=== PATIENT | female | born 1940 | race Caucasian/White ===

== ENCOUNTER 2023-10-20 11:18 | Emergency (ER) | payer OTHER, SELFPAY ==
[2023-10-20 11:21] VITALS: BP 148/94
[2023-10-20 11:38] VITALS: BMI 32.3
[2023-10-20 11:45] VITALS: BP 152/81
--- NOTE | 2023-10-20 11:54 | ED.GENMED ---
History of Present Illness
General
Chief Complaint: Abnormal Lab Value
Source: patient and family (Daughter at bedside)
Exam Limitations: none
Time Seen by Provider: 10/20/23 11:47
Nursing documentation reviewed up to this point in time: agreed with
Travel History
Have you had any contact with someone who has COVID-19?: No
Do you have any symptoms of coronavirus? Fever > 100 degrees, chills, cough, shortness of breath, sore throat, loss of taste or smell, muscle aches, or headache?: No
History of Present Illness
History of Present Illness:
83-year-old female history of asthma/COPD, PE, HTN, HLD, remote history of skin cancer on her leg saw her PCP on 09/18 and diagnosed with bronchitis/asthma was treated and improved. 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
work done, was called today informing her her D dimer was elevated. She admits to feeling 'a little' short of breath at this time, denies leg pain. Denies chest pain, fever, abdominal pain.
Past History
Past History
ED Past Medical History: Cancer (Skin cancer on leg), COPD, HTN and Hypercholesterolemia
ED Past Surgical History: and Orthopedic
Social History
Tobacco: Non-smoker
Alcohol: None
Review of Systems
Review of Systems
Allergies reviewed?: Yes
All Other Systems: ROS reviewed and negative except as documented in HPI and ROS
Constitutional: Denies fever
EENT: Denies sore throat
Respiratory: Reports trouble breathing (feels a little short of breath); Denies cough
Cardiac: Denies chest pain, diaphoresis, palpitations or syncope
ABD/GI: Denies abdominal pain, nausea, vomiting, diarrhea, constipated or anorexia
Musculoskeletal: Reports edema (trace LEs); Denies neck pain or back pain
Skin: Reports no symptoms
Neurological: Reports no symptoms
Phy Exam
Physical Exam
Physical Exam:
GENERAL: No acute distress. A&Ox3.
CONSTITUTIONAL: Afebrile.
EYES: Clear, conjunctivae normal
ENMT: moist mucus membranes, Pharynx nl
RESPIRATORY: Regular respirations, nonlabored, lungs clear.
CARDIOVASCULAR: Regular rate and rhythm, no murmurs, no rubs. Mildly tachycardic heart rate in the 90s to 105, sinus on the bedside monitor
GI: Soft, nontender, normal BS
MUSCULOSKELETAL: Moves with ease. Well perfused. Trace bilateral lower extremity edema
SKIN: Warm, dry, pink
PSYCH: Normal mood and affect. Well kept, interactive and appropriate
NEUROLOGIC: Awake, alert and oriented. No focal neurological deficits
Course
Orders/Labs/Results
Orders:
Orders
10/20/23 12:01
COVID-19 Antigen Urgent
Source: Nasal Swab
Complete Blood Count/With Diff Urgent
Comprehensive Metabolic Panel Urgent
D-Dimer Urgent
Influenza A+B Rapid Molecular Urgent
CHENG Source: Nasal Swab
Specimen Description:
10/20/23 13:07
Add On- LAB Urgent
Tests Added?: Troponin, BNP
10/20/23 13:08
0.9% Sodium Chloride 500 ml [Nss] 500 ml IV BOLUS
10/20/23 13:20
NT-proBNP Routine
Comment: PLEASE DRAW, CANNOT ADD ON
Troponin I Routine
Comment: PLEASE DRAW, CANNOT ADD ON
10/20/23 13:39
CT Chest Pe Study Urgent
Comment:
Reason For Exam: elevated dimer, SOB, his PE
10/20/23 14:57
Dexamethasone Sod Phosphate [Decadron] 10 mg IV NOW STA
Abnormal Lab Results
10/20/23
12:01
RBC 4.12 L 10^6/uL
(4.20-5.40)
MCH 32.0 H pg
(27.0-31.0)
MPV 10.5 H fL
(7.4-10.4)
Absolute Monos (auto) 0.8 H 10^3/uL
(0.1-0.6)
Lymphocytes % 16.7 L %
(20.5-51.1)
D-Dimer 0.78 H ug/mlFEU
(0.00-0.50)
BUN 25 H mg/dl
(7-17)
Glucose 108 H mg/dl
(70-99)
10/20/23 12:01
10/20/23 12:01
Vital Signs
Initial and Last Documented VS:
Initial Vital Signs
Temp Pulse Resp BP Pulse Ox
98.1 F 98 18 148/94 97
10/20/23 11:21 10/20/23 11:21 10/20/23 11:21 10/20/23 11:21 10/20/23 11:21
Last Documented Vital Signs
Temp Pulse Resp BP Pulse Ox
98.1 F 97 13 145/62 96
10/20/23 11:21 10/20/23 13:45 10/20/23 13:45 10/20/23 13:00 10/20/23 13:45
MDM/Problems Addressed
Differential Diagnosis Includes:
PE, pneumonia, CHF, ACS, COVID, COPD exacerbation
MDM/Problems Addressed:
83-year-old female history of asthma/COPD, PE, HTN, HLD, remote history of skin cancer on her leg saw her PCP on 09/18 and diagnosed with bronchitis/asthma was treated and improved. 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
work done, was called today informing her her D dimer was elevated. She admits to feeling 'a little' short of breath at this time, denies leg pain. Denies chest pain, fever, abdominal pain.
10/20/2023 1306 PM
CBC with no clinically significant abnormality
CMP with no clinically significant abnormality, BUN 25, IV fluids infusing for mild dehydration
COVID-negative
10/20/2023 1340 PM
D-dimer 0.78 normal with age correction
Patient is stable, awaiting Chest CT PE study
10/20/[address] PE study: Radiology report read: IMPRESSION:
Evaluation somewhat limited by prominent beam hardening artifact from the patient's bilateral upper extremities, without gross findings to suggest central pulmonary embolism.
Marked chronic T6 vertebral compression fracture.
Pulse ox remains 96% on room air, vital signs stable. Still feels 'a little short of breath.' No chest pain
Most likely exacerbation asthma/copd
Plan: Short burst steroids, continue nebulizations, Albuterol inhaler. Advair, Singulair
F/u with our Pulmonary doctor within the next week.
*Critical Care Note
Total Time (30-74mins, 75-104mins- exclusive of procedures): Not Applicable
ED Attending Note
-
Portions of this chart may have been created with voice recognition software.� Occasional wrong word or��sound alike� substitutions may have occurred due to the inherent limitations of voice recognition software.
Discharge Plan
Departure
Patient Disposition: Home (Routine Discharge)
Date of Disposition: 10/20/23
Time of Disposition: 15:03
Patient with high blood pressure during this ER visit?: No
Covid-19: Negative COVID-19
Discharge Problem:
COPD exacerbation
Instructions: Exacerbation of COPD
Prescriptions:
New
prednisone 20 mg tablet
40 mg PO DAILY Qty: 10 0RF
No Action
fluticasone propion-salmeterol [Advair Diskus] 500-50 mcg/dose Blister With Device
1 inh INHALATION R BID
verapamil 240 mg tablet extended release
240 mg PO DAILY
montelukast [Singulair] 10 mg Tablet
10 mg PO DAILY
rosuvastatin 20 mg tablet
20 mg PO DAILY
Incruse Ellipta 62.5 mcg/actuation blister with device
1 inh INHALATION R DAILY
cholecalciferol (vitamin D3) [Vitamin D3] 25 mcg (1,000 unit) Capsule
25 mcg PO DAILY
omega 4-nwx-dmi-fish oil [Fish Oil] 1,000 mg (120 mg-180 mg) Capsule
1 cap PO DAILY
furosemide [Lasix] 40 mg Tablet
40 mg PO DAILY
albuterol sulfate [ProAir HFA] 90 mcg/actuation Hfa Aerosol Inhaler
2 puff INHALATION R Q6HPRN PRN (Reason: sob)
potassium chloride 20 mEq Tablet Extended Release
20 meq PO DAILY
Centrum Chewables 8 mg-400 mcg- 10 mcg Tablet,Chewable
1 tab PO DAILY
Referrals:
Your, Pulmonary doctor [Other] - Call in 1-3 days for appt
Mya Ireland MD [Family Provider] -
Activity Restrictions/Additional Instructions:
As we discussed, your chest scan shows no pulmonary embolism. You may be having an exacerbation of your COPD
I sent a prescription to your pharmacy for prednisone 40 mg a day for the next 5 days. Start it tomorrow as you were given a dose intravenously here today.
Call your newspaper manager today or tomorrow and make an appointment for sometime within the next week for recheck
Return here immediately for worse trouble breathing, fever, vomiting or feeling sicker in any way.
Continue your nebulizations, albuterol inhaler, Singulair and Advair as usual
Interventions
Interventions:
*Risk Screen - Suicide Last Done: 10/20/23 11:21
*General Assessment Last Done: 10/20/23 11:38
*Neglect/Abuse Screening Last Done: 10/20/23 11:21
ED- Fall Risk Assessment Last Done: 10/20/23 11:38
*ED COVID-19 Vaccine History Last Done: 10/20/23 11:21
*Nursing Disposition Last Done: 10/20/23 15:34
Discharge Date and Time
Discharge Date/Time: 10/20/23 15:34
[2023-10-20 12:00] VITALS: BP 151/73
[2023-10-20 12:21] LABS: % Basophils 0.4 % (0-2); % Eosinophils 2.3 % (0-6); % Immature Granulocytes 0.2 % (0-0.5); % Lymphocytes 16.7 % (20.5-51.1); % Monocytes 9.3 % (1.7-9.3); % Neutrophils 71.1 % (42.2-75.2); Absolute Eosinophils 0.2 10^3/uL (0-0.7); Absolute Lymphocytes 1.4 10^3/uL (1.2-3.4); Absolute Monocytes 0.8 10^3/uL (0.1-0.6); Absolute Neutrophils 5.9 10^3/uL (1.4-6.5); Hematocrit 39.2 % (37.0-47.0); Hemoglobin 13.2 g/dL (12.0-16.0); Mean Corp Hgb Conc. 33.7 g/dL (33.0-37.0); Mean Corpuscular Volume 95.1 fL (81.0-99.0); Mean Platelet Volume 10.5 fL (7.4-10.4); Nucleated Red Blood Cells % 0 %; Platelet Count 222 10^3/uL (130-400); Red Blood Cell Count 4.12 10^6/uL (4.20-5.40); Red Cell Dist. Width 13.6 % (11.5-14.5); White Blood Cell Count 8.3 10^3/uL (4.8-10.8)
[2023-10-20 12:28] LABS: COVID-19 Antigen Negative (Negative)
[2023-10-20 12:31] LABS: ALT (SGPT) 24 U/L (0-35); AST (SGOT) 31 U/L (14-36); Alkaline Phosphatase 100 U/L (38-126); Blood Urea Nitrogen 25 mg/dl (7-17); Calcium 9.4 mg/dl (8.4-10.2); Carbon Dioxide 28 mmol/L (22-30); Chloride 106 mmol/L (98-107); Estimated Creatinine Clearance 45 ml/min; Glucose 108 mg/dl (70-99); Potassium 4.3 mmol/L (3.5-5.1); Sodium 138 mmol/L (135-145); Total Bilirubin 0.6 mg/dl (0.2-1.3); Total Protein 6.7 g/dl (6.3-8.2); eGFR > 60.00
[2023-10-20 13:00] VITALS: BP 145/62
[2023-10-20 13:09] LABS: D-Dimer 0.78 ug/mlFEU (0.00-0.50)
[2023-10-20] MEDS: NSS 500 IV (13:22)
[2023-10-20 13:56] LABS: NT-proBNP 207 pg/ml; Troponin I < 0.012 ng/ml
[2023-10-20] MEDS: DECADRON 10 MG IV (15:03)
== END 2023-10-20 15:34 | disposition home or self-care (01) ==
LOC: EMR 11:18
PROVIDERS: Registered Nurse; EMERGENCY PHYSICIAN Emergency Medicine; FAMILY PHYSICIAN Family Medicine
DX: J44.1 Chronic obstructive pulmonary disease with (acute) exacerbation (principal); I11.0 Hypertensive heart disease with heart failure; I50.9 Heart failure, unspecified; E78.00 Pure hypercholesterolemia, unspecified; Z85.828 Personal history of other malignant neoplasm of skin
CPT/HCPCS: 99284; 96374; 96361; 71275; 80053; 83880; 84484; 85025; 85379; 87502; 87811; Q9967

== ENCOUNTER → 2023-11-19 14:36 | Outpatient (REF) | payer OTHER, SELFPAY | LOC: RCS 14:36 | PROVIDERS: ATTENDING PHYSICIAN Internal Medicine Critical Care Medicine; FAMILY PHYSICIAN Family Medicine | DX: R06.00 Dyspnea, unspecified (principal); I27.20 Pulmonary hypertension, unspecified | CPT/HCPCS: 93306 ==

== ENCOUNTER → 2023-12-21 11:06 | Outpatient (REF) | payer OTHER, SELFPAY | LOC: RAD 11:06 | PROVIDERS: ATTENDING PHYSICIAN Internal Medicine Critical Care Medicine; FAMILY PHYSICIAN Family Medicine | DX: Z86.718 Personal history of other venous thrombosis and embolism (principal); R79.89 Other specified abnormal findings of blood chemistry | CPT/HCPCS: 93970 ==